=== PATIENT | female | born 1975 | race Two or more races ===

== ENCOUNTER 2022-09-09 07:45 | Inpatient (IN) | payer OTHER ==
[~2022-09-09] VITALS: Ht 170.2 cm; Wt 63.5 kg
[2022-09-09] MEDS ORDERED: ULTRACET PO (09:40)
[2022-09-09] MEDS ORDERED: GABAPENTIN800 M1 PO (09:40)
[2022-09-12] MEDS ORDERED: DICLOFENAC EPO1 EACH (13:56)
== END 2022-09-13 10:53 | disposition home or self-care (01) | DRG 743 ==
LOC: O/R 09-12 06:09 → SURH 09-12 07:45 → SURG 09-12 15:33
PROVIDERS: ADMIT Obstetrics & Gynecology Gynecologic Oncology; ATTEND Obstetrics & Gynecology Gynecologic Oncology
PROC: 0UT74ZZ Resection of Bilateral Fallopian Tubes, Percutaneous Endoscopic Approach (ICD-10-PCS; 2022-09-12)
PROC: 0UT04ZZ Resection of Right Ovary, Percutaneous Endoscopic Approach (ICD-10-PCS; 2022-09-12)
PROC: 0UT94ZZ Resection of Uterus, Percutaneous Endoscopic Approach (ICD-10-PCS; principal; 2022-09-12 10:15)
DX: D25.1 Intramural leiomyoma of uterus (principal); D25.2 Subserosal leiomyoma of uterus; N80.329 Endometriosis of the posterior cul-de-sac, unspecified depth; D27.0 Benign neoplasm of right ovary; Z20.822 Contact with and (suspected) exposure to COVID-19